=== PATIENT | male | born 1970 | race African-American/Black ===

== ENCOUNTER → 2017-07-13 | Outpatient (REF) ==
[~2017-07-13] MED LIST: CEP500 PO; NO RTN MEDS; PER PO
== END ==
LOC: AUD 08:30
PROVIDERS: ATTEND Internal Medicine
DX: Z01.10 Encounter for examination of ears and hearing without abnormal findings (principal)
CPT/HCPCS: 92552

== ENCOUNTER → 2017-07-26 | Outpatient (CLI) | payer OTHER, BC ==
--- NOTE | 2017-07-26 12:36 | EKG ---
FACILITY: [facility] [place] PATIENT NAME: RUBIN MUNGUIA : [id number] MR: [id number] V: [id number] EXAM DATE: ORDERING PHYSICIAN: DEBBIE CANTU TECHNOLOGIST: OSMAR Rain Reason : CP Blood Pressure : / mmHG Vent. Rate : 066 BPM Atrial Rate : 066 BPM P-R Int : 158 ms QRS Dur : 082 ms QT Int : 362 ms P-R-T Axes : 069 075 064 degrees QTc Int : 379 ms Normal sinus rhythm Normal ECG No previous ECGs available Referred By: PEPE Confirmed By:
--- NOTE | 2017-07-26 13:24 | RADIOLOGY IMAGING REPORT ---
FACILITY: [facility] [place] PATIENT NAME: Juan Carlos Greenberg : 1970 MR: [id number] V: [id number] EXAM DATE: ORDERING PHYSICIAN: DEBBIE CANTU TECHNOLOGIST: Location: [facility] Patient: Juan Carlos Greenberg : 1970 Visit/Account:[id number] Date of Sevice: 07/26/2017 Exam type: CHEST PA AND LAT History: Pneumonia, chest pain, shortness of breath Comparison: 03/31/2017. Findings: Lungs are hyperinflated but otherwise clear. There is no focal consolidation, pleural effusion or pn eumothorax. Heart size is normal. The osseous structures demonstrate degenerative changes at the sternoclavicular joints. IMPRESSION: 1. No acute cardiopulmonary disease. Report Dictated By: Watson Pham MD at 07/26/2017 1:19 PM Report E-Signed By: Watson Pham MD at 07/26/2017 1:20 PM WSN:[id number]
== END ==
LOC: RAD 11:55
PROVIDERS: ATTEND Nurse Practitioner Family
DX: R91.8 Other nonspecific abnormal finding of lung field (principal); R07.9 Chest pain, unspecified
CPT/HCPCS: 71046; 93005

== ENCOUNTER → 2017-08-05 | Outpatient (CLI) | payer OTHER, BC ==
--- NOTE | 2017-08-05 16:50 | RT STRESS TEST REPORT ---
FACILITY: [facility] PATIENT NAME: RUBIN MUNGUIA : [id number] MR: [id number] V: [id number] EXAM DATE: ORDERING PHYSICIAN: DEBBIE ARZOLA TECHNOLOGIST: Anibal Acquisition Time: 2017-08-05 14:05:18 Total Exercise Time: 00:10:17 Test Indications: Chest Pain / Discomfort Medications: NONE Protocol: BRUCE2 Max HR: 190 BPM 111% of Pred: 171 BPM Max BP: 219/112 mmHG Max Work Load: 12.2 METS He had no chest pain or ST depression during the test. He had good heart rate recovery. However, hi s DBP was 107 at the beginning of the test and increased to 112 at a maximum. His SBP increased to to 219 during the test but came down to 143 at the end of the test. He denied any headache, blurry vision or chest pain. Low risk. However, he had elevated blood pressure prior to starting the test and it increased during the test. He was told to follow it as an outpatient and call his PCP for DBP consistently greater than 100. Confirmed by VIANCA MARIN ([id number]) on 08/05/2017 4:50:45 PM Referred By: Debbie Arzola Overread By: VIANCA MARIN
== END ==
LOC: RESP 04:47
PROVIDERS: ATTEND Nurse Practitioner Family
DX: R07.9 Chest pain, unspecified (principal); R03.0 Elevated blood-pressure reading, without diagnosis of hypertension
CPT/HCPCS: 93017